=== PATIENT | female | born 1970 | race African-American/Black ===

== ENCOUNTER 2018-06-15 03:45 | Emergency (ER) | payer MEDICAID ==
[~2018-06-15] VITALS: Ht 160 cm; Wt 54.5 kg
[2018-06-15] MEDS ORDERED: HYDROCODONE/ACETAMINOPHEN 5-325 MG TABLET PO ONE (07:45)
[2018-06-15] MEDS ORDERED: KETOROLAC TROMETHAMINE 10 MG TABLET PO ONE (07:45)
[2018-06-15 11:00] VITALS: BP 106/60
== END 2018-06-15 11:20 | disposition home or self-care (01) ==
LOC: EMS 03:48
DX: S22.42XA Multiple fractures of ribs, left side, initial encounter for closed fracture (principal); F41.9 Anxiety disorder, unspecified; F14.90 Cocaine use, unspecified, uncomplicated; F17.210 Nicotine dependence, cigarettes, uncomplicated; W51.XXXA Accidental striking against or bumped into by another person, initial encounter; Y93.89 Activity, other specified; Y92.89 Other specified places as the place of occurrence of the external cause; Y99.8 Other external cause status
CPT/HCPCS: 71046; 71250; 81025; 99284; G0238

== ENCOUNTER 2018-06-20 01:41 | Emergency (ER) | payer MEDICAID ==
[~2018-06-20] VITALS: Ht 160 cm; Wt 56.8 kg
[2018-06-20 01:57] VITALS: BP 125/86
== END 2018-06-20 03:46 | disposition left against medical advice (07) ==
LOC: EMS 01:41
DX: R05 Cough (principal); R07.81 Pleurodynia; F41.9 Anxiety disorder, unspecified; F14.90 Cocaine use, unspecified, uncomplicated; F17.210 Nicotine dependence, cigarettes, uncomplicated; Z53.21 Procedure and treatment not carried out due to patient leaving prior to being seen by health care provider

== ENCOUNTER 2018-06-20 07:05 | Emergency (ER) | payer MEDICAID ==
[~2018-06-20] VITALS: Ht 154.9 cm; Wt 61.4 kg
[2018-06-20] MEDS ORDERED: IPRATROPIUM BROMIDE 0.5 MG/2.5 ML NEB SOLUTION NEB ONE (07:45)
[2018-06-20] MEDS ORDERED: OxyCODONE HCL/ACETAMINOPHEN 5-325 MG TABLET PO ONE (07:45)
[2018-06-20] MEDS ORDERED: PredniSONE 20 MG TABLET PO ONE (07:45)
[2018-06-20] MEDS ORDERED: ALBUTEROL SULFATE 2.5 MG/0.5 ML NEB SOLUTION NEB ONE (07:45)
[2018-06-20] MEDS ORDERED: 0.9% SODIUM CHLORIDE 5 ML NEB SOLUTION NEB ONE (07:45)
[2018-06-20 09:54] VITALS: BP 113/74
== END 2018-06-20 10:03 | disposition home or self-care (01) ==
LOC: EMS 07:05
DX: S22.42XD Multiple fractures of ribs, left side, subsequent encounter for fracture with routine healing (principal); J40 Bronchitis, not specified as acute or chronic; F41.9 Anxiety disorder, unspecified; F17.210 Nicotine dependence, cigarettes, uncomplicated; F14.90 Cocaine use, unspecified, uncomplicated; X58.XXXD Exposure to other specified factors, subsequent encounter
CPT/HCPCS: 71046; 81025; 94640; 99284; 99406; J7512; J7613

== ENCOUNTER 2018-06-21 02:33 | Emergency (ER) | payer MEDICAID ==
[~2018-06-21] VITALS: Ht 160 cm; Wt 65.9 kg
[2018-06-21 02:37] VITALS: BP 139/77
== END 2018-06-21 03:33 | disposition left against medical advice (07) ==
LOC: EMS 02:33
DX: R07.81 Pleurodynia (principal); Z53.21 Procedure and treatment not carried out due to patient leaving prior to being seen by health care provider

== ENCOUNTER 2018-06-21 12:12 | Emergency (ER) | payer MEDICAID ==
[~2018-06-21] VITALS: Ht 160 cm; Wt 54.5 kg
[2018-06-21 12:18] VITALS: BP 122/83
== END 2018-06-21 13:45 | disposition left against medical advice (07) ==
LOC: EMS 12:16
DX: R07.81 Pleurodynia (principal); Z53.21 Procedure and treatment not carried out due to patient leaving prior to being seen by health care provider

== ENCOUNTER 2020-03-21 07:18 | Emergency (ER) | payer MEDICAID ==
[~2020-03-21] VITALS: Ht 162.6 cm; Wt 56.8 kg
[2020-03-21 07:20] VITALS: BP 119/92
[2020-03-21] MEDS ORDERED: CEPHALEXIN MONOHYDRATE 500 MG CAPSULE PO ONE (07:45)
[2020-03-21] MEDS ORDERED: PERTUSS(ACELL),DIPH,TET VAC/PF 0.5 ML VIAL IM ONE (07:45)
[2020-03-21] MEDS ORDERED: DOXYCYCLINE HYCLATE 100 MG CAPSULE PO ONE (07:45)
[2020-03-21] MEDS ORDERED: KETOROLAC TROMETHAMINE 60 MG/2 ML VIAL IM ONE (07:45)
== END 2020-03-21 08:40 | disposition home or self-care (01) ==
LOC: EMS 07:20
DX: S83.92XA Sprain of unspecified site of left knee, initial encounter (principal); S50.862A Insect bite (nonvenomous) of left forearm, initial encounter; L03.114 Cellulitis of left upper limb; F41.9 Anxiety disorder, unspecified; J44.9 Chronic obstructive pulmonary disease, unspecified; F17.210 Nicotine dependence, cigarettes, uncomplicated; W57.XXXA Bitten or stung by nonvenomous insect and other nonvenomous arthropods, initial encounter; Y93.89 Activity, other specified; Y92.89 Other specified places as the place of occurrence of the external cause; Y99.8 Other external cause status
CPT/HCPCS: 90471; 90715; 96372; 99284; 99406; J1885

== ENCOUNTER 2021-02-05 14:16 | Emergency (ER) | payer MEDICAID ==
[~2021-02-05] VITALS: Ht 162.6 cm; Wt 56.8 kg
[2021-02-05 14:53] VITALS: BP 132/79
== END 2021-02-05 15:08 | disposition home or self-care (01) ==
LOC: EMS 14:16
DX: H60.11 Cellulitis of right external ear (principal); H60.91 Unspecified otitis externa, right ear; F41.9 Anxiety disorder, unspecified; J44.9 Chronic obstructive pulmonary disease, unspecified; F17.210 Nicotine dependence, cigarettes, uncomplicated; F12.90 Cannabis use, unspecified, uncomplicated
CPT/HCPCS: 99283; Z7502